=== PATIENT | male | born 1960 | race Caucasian/White ===

== ENCOUNTER 2018-07-11 13:03 | Emergency (ER) | payer MEDICARE, MEDICAID ==
[~2018-07-11] VITALS: Ht 177.8 cm; Wt 98.2 kg
[2018-07-11 14:12] LABS: BASOPHILS # (AUTO) 0.03 x10^3/uL (0-0.1); BASOPHILS % (AUTO) 0 % (0-1); EOSINOPHILS # (AUTO) 0.11 x10^3/uL (0-0.4); EOSINOPHILS % (AUTO) 2 % (1-7); LYMPHOCYTES # (AUTO) 1.79 x10^3/uL (1-3.4); LYMPHOCYTES % (AUTO) 25 % (22-44); MD NO; MEAN CORPUSCULAR HEMOGLOBIN 31.3 pg (27.5-34.5); MEAN CORPUSCULAR HGB CONC 33.6 g/dL (33.2-36.2); MEAN CORPUSCULAR VOLUME 93.2 fL (81-97); MEAN PLATELET VOLUME 8.4 fL (7.4-10.4); MONOCYTES # (AUTO) 0.94 x10^3/uL (0.2-0.8); MONOCYTES % (AUTO) 13 % (2-9); NEUTROPHILS # (AUTO) 4.24 x10^3/uL (1.8-6.8); NEUTROPHILS % (AUTO) 60 % (42-75); PLATELET COUNT 321 x10^3/uL (130-400); RED BLOOD COUNT 4.84 x10^6/uL (4.38-5.82); RED CELL DISTRIBUTION WIDTH 13.8 % (9.4-14.8)
[2018-07-11 14:23] LABS: ANION GAP 7 mmol/L (5-15); CALCIUM 8.4 mg/dL (8.5-10.1); CHLORIDE 109 mmol/L (98-107); CREATININE 0.97 mg/dL (0.7-1.3)
[2018-07-11 15:14] VITALS: BP 130/83
== END 2018-07-11 15:16 | disposition home or self-care (01) ==
LOC: ED 14:00
DX: J00 Acute nasopharyngitis [common cold] (principal); B97.89 Other viral agents as the cause of diseases classified elsewhere; F17.200 Nicotine dependence, unspecified, uncomplicated
CPT/HCPCS: 36415; 71046; 80048; 85025; 93005; 99285

== ENCOUNTER 2020-09-16 11:09 | Emergency (ER) | payer MEDICARE, MEDICAID ==
[~2020-09-16] VITALS: Ht 177.8 cm; Wt 96.4 kg
[2020-09-16 11:15] VITALS: BP 126/82
--- NOTE | 2020-09-16 12:57 | NUR ---
PT BEING EVALUATED FOR COUGH WEAKNESS. AWAITING XRAY RESULTS. NO DISTRESS
[2020-09-16 12:58] LABS: BASOPHILS % (AUTO) 1 % (0-1); EOSINOPHILS % (AUTO) 1 % (1-7); LYMPHOCYTES % (AUTO) 24 % (22-44); MEAN CORPUSCULAR HGB CONC 34.8 g/dL (33.2-36.2); MEAN PLATELET VOLUME 8.6 fL (7.4-10.4); MONOCYTES % (AUTO) 7 % (2-9); NEUTROPHILS % (AUTO) 67 % (42-75); PLATELET COUNT 348 x10^3/uL (130-400); RED CELL DISTRIBUTION WIDTH 13.7 % (9.4-14.8)
[2020-09-16 13:11] LABS: MD NO
[2020-09-16 13:12] LABS: ALANINE AMINOTRANSFERASE 48 U/L (12-78); ALBUMIN 3.8 g/dL (3.4-5.0); ANION GAP 6 mmol/L (5-15); CALCIUM 8.9 mg/dL (8.5-10.1); CHLORIDE 113 mmol/L (98-107); CREATININE 1.12 mg/dL (0.7-1.3)
[2020-09-16 13:14] LABS: ALKALINE PHOSPHATASE 88 U/L (45-117); BILIRUBIN,TOTAL 0.3 mg/dL (0.2-1.0); TOTAL PROTEIN 6.8 g/dL (6.4-8.2)
--- NOTE | 2020-09-16 13:55 | NUR ---
AFTER DISCHARGE GIVEN AMBULATED FROM ER STEADY GAIT
== END 2020-09-16 13:57 | disposition home or self-care (01) ==
LOC: ED 13:17
DX: R07.89 Other chest pain (principal); Z20.822 Contact with and (suspected) exposure to COVID-19; R06.02 Shortness of breath; R42 Dizziness and giddiness
CPT/HCPCS: 36415; 71045; 80053; 85025; 87635; 93005; 99285